=== PATIENT | female | born 1985 | race Caucasian/White ===

== ENCOUNTER 2020-09-29 15:26 | Emergency (ER) | payer MEDICARE, MEDICAID, SELFPAY ==
[2020-09-29 15:33] VITALS: BP 113/74; PULSE 90; RESP 16; TEMP 36.2; O2SAT 100
--- NOTE | 2020-09-29 16:59 | ED.GENADULT ---
HPI - General Adult General Chief complaint: Upper Respiratory Infection Stated complaint: sore throat, difficulty swallowing Time Seen by Provider: 09/29/20 16:13 Source: patient Mode of arrival: ambulatory Limitations: no limitations History of Present Illness HPI narrative: Patient presents with chief complaint of swelling to the right side of throat with pain over the past 3 days. Patient denies inability or difficulty swallowing her own secretions food or fluid. She does report that it is sore and she swells a swelling under her chin. Patient denies having a history of strep pharyngitis. Patient states that she is allergic to amoxicillin but she has taken cephalexin in the past without complicating symptoms. Related Data Allergies Allergy/AdvReac Type Severity Reaction Status Date / Time amoxicillin Allergy Intermediate Other Verified 02/15/19 14:32 STATES BODY HAS ABSORBTION AdvReac Unknown Uncoded 02/07/14 17:24 PROBLEMS Review of Systems Review of Systems: Narrative: CONSTITUTIONAL: Denies fever, chills, or sweats. EYES: Denies visual changes, redness, or discharge. ENT: Reports sore throat Denies rhinorrhea, congestion, or otalgia. CARDIOVASCULAR: Denies chest pain, palpitations, or edema. RESPIRATORY: Denies cough or dyspnea. GASTROINTESTINAL: Denies abdominal pain, nausea, vomiting, or diarrhea. GENITOURINARY: Denies dysuria or hematuria. SKIN: Denies rash or itching. MUSCULOSKELETAL: Denies back pain, joint pain, or myalgia. NEUROLOGIC: Denies headache, numbness, dizziness, or weakness. PSYCHIATRIC: Denies anxiety or depression. PMFSH Social History Social History Alcohol intake: never Exam Narrative: Exam Narrative: GENERAL: Well-appearing, well-nourished, and in no acute distress. HEAD: Normocephalic, atraumatic. EYES: PERRLA and EOMI. ENT: Nares clear, no rhinorrhea or epistaxis. Mucous membranes moist. Oropharynx without right sided mild tonsillar hypertrophy and erythema. Air way is patent and there is not exudate or ulceration noted. There is no uvula deviation. No hot potatoe voice. Patient handling secretions without issue. Bilateral TMs pearly tapia nonbulging NECK: ROM intact. Mild right tonsillar lymphadenopathy. CHEST: No respiratory distress. No audible wheezes. No tachypnea EXTREMITIES: Normal range of motion. No edema. SKIN: Warm, dry, no rash. NEURO: No focal deficits. Alert and oriented x3. PSYCH: Normal mood and affect. Course Vital Signs Vital signs: Vital Signs Temperature 97.2 F L 09/29/20 15:33 Pulse Rate 90 09/29/20 15:33 Respiratory Rate 16 09/29/20 15:33 Blood Pressure 113/74 09/29/20 15:33 Pulse Oximetry 100 09/29/20 15:33 Temperature 97.2 F L 09/29/20 15:33 Pulse Rate 90 09/29/20 15:33 Respiratory Rate 16 09/29/20 15:33 Blood Pressure 113/74 09/29/20 15:33 Pulse Oximetry 100 09/29/20 15:33 Medical Decision Making MDM Narrative Medical decision making narrative: Patient will be put on cephalexin instructed to follow-up with her primary care provider in 2 to 3 days. Patient is informed that if she begins to have trouble swallowing, worsening swelling or any other emergent concerns to present to the emergency department for further investigation into possible peritonsillar abscess. At this time patient is not showing signs of peritonsillar abscess. Differential Diagnosis Differential Diagnosis: Strep, pharyngitis, peritonsillar abscess Vital Signs Vital Signs: Vital Signs Temperature 97.2 F L 09/29/20 15:33 Pulse Rate 90 09/29/20 15:33 Respiratory Rate 16 09/29/20 15:33 Blood Pressure 113/74 09/29/20 15:33 Pulse Oximetry 100 09/29/20 15:33 Temperature 97.2 F L 09/29/20 15:33 Pulse Rate 90 09/29/20 15:33 Respiratory Rate 16 09/29/20 15:33 Blood Pressure 113/74 09/29/20 15:33 Pulse Oximetry 100 09/29/20 15:33 Lab Data Labs: Strep Screen Presumptive Negative
[2020-09-29 17:15] VITALS: BP 138/88; PULSE 92; RESP 20; O2SAT 100
== END 2020-09-29 17:15 | disposition home or self-care (01) ==
PROVIDERS: Emergency Provider Emergency Medicine; PCP Family Medicine
DX: J02.9 Acute pharyngitis, unspecified (principal)
CPT/HCPCS: 87081; 87880; 99283

== ENCOUNTER 2020-10-10 01:39 | Emergency (ER) | payer MEDICARE, MEDICAID, SELFPAY ==
--- NOTE | ~2020-10-10 | XR_ITS ---
EXAMINATION: XR hand RT min 3V INDICATION: Right hand pain TECHNIQUE: Three views of the right hand are obtained. COMPARISON: None available FINDINGS: No acute fracture is identified. The soft tissues are normal. The distal ulna appears to be dorsally displaced with respect to the carpus. There is also subtle dorsal bowing of the distal ulna . IMPRESSION: 1. No definite acute osseous abnormality. 2. Mild dorsal bowing of the distal ulna with subtle dorsal displacement of the ulna with respect to the carpus, suggestive of prior injury. Reviewed, dictated and finalized at location A. [employer]
--- NOTE | ~2020-10-10 | XR_ITS ---
EXAMINATION: XR ribs LT 2V w CXR 2V INDICATION: Left chest pain TECHNIQUE: Frontal and lateral views of the chest and 3 views of the left ribs were obtained. COMPARISON: None. FINDINGS: The lungs are free of acute opacities. There is no pleural effusion or pneumothorax. The ca rdiomediastinal silhouette is normal. There is a minimally displaced fracture of the left ninth rib. IMPRESSION: 1. Minimally displaced left ninth rib fracture. 2. No acute cardiopulmonary abnormality. Reviewed, dictated and finalized at location A. [facility] [employer]
[2020-10-10 01:44] VITALS: BP 115/92; PULSE 94; RESP 16; TEMP 36.4; O2SAT 98
--- NOTE | 2020-10-10 01:59 | ED.FALL ---
HPI - Fall General Chief Complaint: Fall Stated Complaint: fell on ice,left sided rib pain Time Seen by Provider: 10/10/20 01:55 History of Present Illness HPI Narrative: 35 yo female presents form home after a fall. She reports that she slipped on the ice and fell onto her left side around 1700 today. She has had pain since that time. constant with intermittent shooting paroxysms. No SOB, cough, congestion, fever. She also reports mild pain in her right hand. Related Data Home Medications Medication Instructions Recorded Confirmed clonazepam 10/10/20 escitalopram oxalate mg 10/10/20 gabapentin 10/10/20 sumatriptan succinate SUBCUT 10/10/20 Allergies Allergy/AdvReac Type Severity Reaction Status Date / Time amoxicillin Allergy Intermediate Other Verified 10/10/20 01:57 Review of Systems Review of Systems: All systems reviewed & are unremarkable except as noted in HPI and below Constitutional: Constitutional: Denies fever(s) Eyes: Eyes: Reports no additional eye complaints Cardiovascular: Cardiovascular: Reports chest pain Respiratory: Respiratory: Denies chest congestion and Denies dyspnea Gastrointestinal: Gastrointestinal: Denies abdominal pain and Denies nausea Genitourinary: Genitourinary: Denies dysuria Neurologic: Denies dizziness and Denies weakness [facility] Past Medical History Medical History (Updated 10/10/20 @ 04:30 by Christian Mariano MD) Cervical cancer Crohn's disease Social History Social History (Updated 10/10/20 @ 04:27 by Christian Mariano MD) Smoking status: Current every day smoker Alcohol intake: never Exam Const: General: no acute distress and alert Orientation/consciousness: patient oriented x3 HENMT: Head: no contusions and no lacerations Teeth and gingiva: abnormal tooth and associated gingiva Other: Edentulous Eyes: Pupils: Equal, round and reactive pupils present Neck: Neck: normal visual inspection Chest: Chest palpation & inspection: tenderness rib (left lower) Resp: Effort & Inspection: normal respiratory effort Auscultation: clear to auscultation bilaterally Cardio: Rate: regular rate Rhythm: regular rhythm GI: GI Palp: Yes Soft to palpation and No Tenderness to palpation present (GI) Skin: General skin exam: normal color Neuro: General: patient oriented x3, moves all extremities, no focal motor deficits and CN's II-XI intact bilaterally Speech: normal speech Extrem: General: normal to inspection Course Vital Signs Vital signs: Vital Signs Temperature 36.4 C 10/10/20 01:44 Pulse Rate 94 10/10/20 01:44 Respiratory Rate 16 10/10/20 01:44 Blood Pressure 115/92 H 10/10/20 01:44 Pulse Oximetry 98 10/10/20 01:44 Temperature 36.4 C 10/10/20 01:44 Pulse Rate 94 10/10/20 01:44 Respiratory Rate 16 10/10/20 01:44 Blood Pressure 115/92 H 10/10/20 01:44 Pulse Oximetry 98 10/10/20 01:44 MDM - Fall Differential Diagnosis Differential diagnosis: Likely fracture of wrist and other (rib fracture, contusion, muscle strain) Medical Records Attestation: I reviewed the patient's medical records. Imaging Data Attestation: I personally reviewed and interpreted this imaging study as follows: My impression: No displaced rib fractures Negative hand x-ray Discharge Plan Discharge Clinical Impression: Strain of chest wall Qualifiers: Encounter type: initial encounter Qualified Code(s): S29.011A - Strain of muscle and tendon of front wall of thorax, initial encounter Contusion of hand Qualifiers: Encounter type: initial encounter Laterality: right Qualified Code(s): S60.221A - Contusion of right hand, initial encounter Patient Disposition: Home, Self-Care Condition: Stable Instructions: Contusion in Adults (ED), Chest Wall Pain (ED) Prescriptions: New cyclobenzaprine 10 mg tablet 10 mg PO TID PRN (Reason: muscle spasm) Qty: 20 RF: 0 naproxen sodium 750 mg tablet, ER multiphase
[2020-10-10] MEDS: KETOROLAC (*BKC) 60 MG/2 ML VIAL IM (02:08)
[2020-10-10] MEDS: diazePAM INJ (*CRX) 10 MG/2 ML SYRINGE 5 MG IM (02:09)
[2020-10-10] MEDS: HYDROcodone/acetaminophen (*CRX) 5-325 MG TABLET 1 TAB PO (03:06)
== END 2020-10-10 03:31 | disposition home or self-care (01) ==
PROVIDERS: Emergency Provider Emergency Medicine; PCP Family Medicine
DX: S29.011A Strain of muscle and tendon of front wall of thorax, initial encounter (principal); S60.221A Contusion of right hand, initial encounter; Z85.41 Personal history of malignant neoplasm of cervix uteri; K50.90 Crohn's disease, unspecified, without complications; F17.200 Nicotine dependence, unspecified, uncomplicated; W00.0XXA Fall on same level due to ice and snow, initial encounter
CPT/HCPCS: 71046; 71100; 73130; 96372; 99284; A9270; J1885; J3360